=== PATIENT | female | born 1950 | race Caucasian/White ===

== ENCOUNTER → 2020-12-06 | Outpatient (CLI) | payer OTHER | LOC: RAD 11:57 | PROVIDERS: ATTEND Internal Medicine | DX: R09.89 Other specified symptoms and signs involving the circulatory and respiratory systems (principal); J44.1 Chronic obstructive pulmonary disease with (acute) exacerbation; M41.84 Other forms of scoliosis, thoracic region; M43.22 Fusion of spine, cervical region ==

== ENCOUNTER → 2021-01-23 | Outpatient (CLI) | payer OTHER ==
--- NOTE | 2021-01-23 11:48 | 2DMMODE ---
[facility] [place] [address] 2 D/M-MODE ECHOCARDIOGRAM Name: KAREN FRIEDMAN Room #: REG [facility]#: [id number] Admission: 01/23/21 Attend Phys: Jeffry Dubon MD Discharge: Date of : 46 Report #: [id number] THIS REPORT FOR: cc: Ibrahima Royal MD, Cabot L. MD Park, Jin S. MD ~ APPROVED REPORT Study performed: 01/23/2021 10:25:28 EXAM: Comprehensive 2D, Doppler, and color-flow Echocardiogram Patient Location: Out-Patient Room #: 2 Status: routine BSA: 1.89 HR: 87 bpm BP: 146/96 mmHg Rhythm: NSR Other Information Study Quality: Adequate Indications Arrhythmia COPD Diabetes Dyspnea Hypertension/HDD 2D Dimensions IVSd: 10.70 (7-11mm) LVOT Diam: 25.39 (18-24mm) LVDd: 41.73 mm PWd: 10.84 (7-11mm) Ascending Ao: 34.73 (22-36mm) LVDs: 27.25 (25-40mm) Aortic Root: 34.85 mm IVC: 15.00 mm Volumes Left Atrial Volume (Systole) Single Plane 4CH: 40.92 mL Single Plane 2CH: 21.76 mL LA ESV Index: 17.00 mL/m2 Aortic Valve AoV Peak Mir.: 1.55 m/s AO Peak Gr.: 9.62 mmHg LVOT Max P.51 mmHg [facility] [address] [place] [address] 2 D/M-MODE ECHOCARDIOGRAM Name: KAREN FRIEDMAN NICK Room #: REG CL [facility]#: [id number] Admission: 01/23/21 Attend Phys: Jeffry Dubon, Discharge: Date of : 46 Report #: [id number] LVOT Max V: 1.28 m/s NABIL Vmax: 4.16 cm2 Mitral Valve E/A Ratio: 0.5 MV Decel. Time: 488.54 ms MV E Max Mir.: 0.72 m/s MV A Mir.: 1.48 m/s MV PHT: 141.68 ms IVRT: 119.95 ms Pulmonary Valve PV Peak Mir.: 1.27 m/s PV Peak Gr.: 6.44 mmHg Pulmonary Vein P Vein S: 0.59 m/s P Vein A: 0.27 m/s P Vein D: 0.17 m/s P Vein A Dur.: 92.3 msec P Vein S/D Ratio: 3.47 Left Ventricle The left ventricle is normal size. There is normal LV segmental wall motion. There is normal left ventricular wall thickness. Left ventricular systolic function is normal. The left ventricular ejection fraction is within the normal range. LVEF is 60-65%. Grade I - abnormal relaxation pattern. Right Ventricle The right ventricle is normal size. The right ventricular systolic function is normal. Atria The left atrium size is normal. The right atrium size is normal. Aortic Valve The aortic valve is normal in structure. No aortic regurgitation is present. There is no aortic valvular stenosis. Mitral Valve The mitral valve is normal in structure. Trace mitral regurgitation. No evidence of mitral valve stenosis. Tricuspid Valve The tricuspid valve is normal in structure. There is no tricuspid valve regurgitation noted. [facility] [place] [address] 2 D/M-MODE ECHOCARDIOGRAM Name: KAREN FRIEDMAN NICK Room #: REG COUNTS INCLUDE 234 BEDS AT THE [facility]#: [id number] Admission: 01/23/21 Attend Phys: Jeffry Dubon, Discharge: Date of : 46 Report #: [id number] Pulmonic Valve The pulmonary valve is normal in structure. There is no pulmonic valvular regurgitation. Great Vessels The aortic root is normal in size. IVC is normal in size and collapses >50% with inspiration. Pericardium There is no pericardial effusion. <Conclusion> The left ventricle is normal size. There is normal left ventricular wall thickness. Left ventricular systolic function is normal. Grade I - abnormal relaxation pattern. The right ventricle is normal size. The left atrium size is normal. The aortic valve is normal in structure. Trace mitral regurgitation. <ELECTRONICALLY SIGNED> By: Milan Segovia MD 01/23/21 [id number] Milan Segovia MD /INF
== END ==
LOC: CV 10:02
PROVIDERS: ATTEND Internal Medicine
DX: R06.02 Shortness of breath (principal); J44.9 Chronic obstructive pulmonary disease, unspecified